=== PATIENT | female | born 1985 | race Caucasian/White ===

== ENCOUNTER 2022-07-02 18:27 | Emergency (ER) | payer MEDICAID ==
[~2022-07-02] VITALS: Ht 157.5 cm; Wt 82.0 kg
[2022-07-02 18:32] VITALS: BP 161/100
[2022-07-02 22:06] LABS: BASOPHILS % 1.2 % (0.0-2.0); EOSINOPHILS % 2.2 % (0.0-5.0); HEMATOCRIT. 33.8 % (36.0-48.0); HEMOGLOBIN. 11.2 g/dL (12.0-16.0); LYMPHOCYTES % 23.4 % (20.0-50.0); MEAN CORPUSCULAR HEMOGLOBIN 27.5 pg (28.0-32.0); MEAN CORPUSCULAR VOLUME 83.3 fL (81.0-99.0); MEAN PLATELET VOLUME 8.7 fl (7.4-10.4); MONOCYTES % 7.3 % (2.0-8.0); NEUTROPHILS % 65.9 % (40.0-76.0); PLATELET 359 x1000/uL (130-400); RED BLOOD CELL COUNT 4.05 mill/uL (4.2-5.4); RED CELL DISTRIBUTION WIDTH 14.3 % (11.6-14.6)
[2022-07-02 22:14] LABS: CHLORIDE 108 mEq/L (98-107)
[2022-07-02 22:16] LABS: HCG SCREEN NEGATIVE
[2022-07-02] MEDS ORDERED: SODIUM CHLORIDE 0.9% 1,000 ML IV ONE (22:30)
[2022-07-02] MEDS ORDERED: IOHEXOL-350 100 ML BOTTLE ONE (23:06)
== END 2022-07-03 00:40 | disposition home or self-care (01) ==
LOC: ER 18:27
DX: R07.89 Other chest pain (principal); Z98.890 Other specified postprocedural states; Z90.49 Acquired absence of other specified parts of digestive tract; Z88.1 Allergy status to other antibiotic agents; Z88.3 Allergy status to other anti-infective agents
CPT/HCPCS: 36415; 71045; 71275; 80053; 83880; 84484; 84703; 85025; 85379; 96360; 99285; J7030; Q9967; Z7610

== ENCOUNTER 2024-06-10 16:01 | Emergency (ER) | payer MEDICAID ==
[~2024-06-10] VITALS: Ht 160 cm; Wt 82.0 kg
[2024-06-10 16:04] VITALS: O2SAT 100
[2024-06-10 16:13] VITALS: PULSE 93; O2SAT 100
[2024-06-10] MEDS ORDERED: ACETAMINOPHEN 325MG TABLET PO ONE (17:45)
[2024-06-10 20:23] VITALS: BP 131/86; RESP 16
[2024-06-10] MEDS: LIDOCAINE 5% PATCH TOP SCH (20:23)
[2024-06-10 20:24] VITALS: TEMP 98
[2024-06-10] MEDS: ACETAMINOPHEN 325MG TABLET PO NR (20:24)
== END 2024-06-10 20:30 | disposition home or self-care (01) ==
LOC: ER 16:01
DX: S70.02XA Contusion of left hip, initial encounter (principal); S30.0XXA Contusion of lower back and pelvis, initial encounter; Z88.1 Allergy status to other antibiotic agents; Z88.6 Allergy status to analgesic agent; Z90.49 Acquired absence of other specified parts of digestive tract; Z98.890 Other specified postprocedural states; W10.9XXA Fall (on) (from) unspecified stairs and steps, initial encounter; Y93.89 Activity, other specified; Y92.89 Other specified places as the place of occurrence of the external cause; Y99.8 Other external cause status
CPT/HCPCS: 72100; 73502; 81025; 99284

== ENCOUNTER 2024-12-29 10:30 | Inpatient (IN) | payer MEDICAID ==
[~2024-12-29] VITALS: Ht 157.5 cm; Wt 81.6 kg
[2024-12-29 11:18] LABS: HEMATOCRIT. 35.8 % (36.0-48.0); HEMOGLOBIN. 11.8 g/dL (12.0-16.0); MEAN CORPUSCULAR HEMOGLOBIN 27.6 pg (28.0-32.0); MEAN CORPUSCULAR HGB CONC 32.9 g/dL (31.0-37.0); MEAN CORPUSCULAR VOLUME 83.9 fL (81.0-99.0); MEAN PLATELET VOLUME 8.5 fl (7.4-10.4); PLATELET 357 x1000/uL (130-400); RED BLOOD CELL COUNT 4.27 mill/uL (4.2-5.4); RED CELL DISTRIBUTION WIDTH 16.3 % (11.6-14.6); WHITE BLOOD COUNT 10.8 x1000/uL (4.5-11.0)
[2024-12-29 11:25] LABS: CHLORIDE 100 mEq/L (98-107); POTASSIUM 3.7 mEq/L (3.5-5.1); SODIUM 132 mEq/L (136-145)
[2024-12-29 11:26] LABS: CARBON DIOXIDE 17 mEq/L (21-32)
[2024-12-29 11:27] LABS: CALCIUM 9.4 mg/dL (8.7-10.4)
[2024-12-29 11:31] LABS: GLUCOSE 120 mg/dL (70-105)
[2024-12-29 11:32] LABS: UREA NITROGEN BLOOD 8 mg/dL (9-23)
[2024-12-29 11:33] LABS: ALANINE AMINOTRANSFERASE 26 IU/L (10-49); ALBUMIN 4.1 g/dL (3.2-4.8); ASPARTATE AMINOTRANSFERASE 27 IU/L (<34)
[2024-12-29 11:34] LABS: BILIRUBIN TOTAL 1.6 mg/dL (0.1-1.0); PROTEIN TOTAL 7.3 g/dL (6.0-8.3)
[2024-12-29 11:39] LABS: HCG SCREEN NEGATIVE
[2024-12-29 11:59] LABS: CLARITY URINE CLOUDY (CLEAR); COLOR URINE YELLOW (YELLOW); GLUCOSE URINE NEGATIVE (NEGATIVE); KETONES URINE NEGATIVE (NEGATIVE); LEUKOCYTE ESTERASE URINE 1+ (NEGATIVE); NITRITE URINE NEGATIVE (NEGATIVE); OCCULT BLOOD URINE 2+ (NEGATIVE); PROTEIN URINE 3+ (NEGATIVE); SPECIFIC GRAVITY URINE 1.009 (1.005-1.030); UROBILINOGEN URINE 0.2 E.U./dL (0.2-1.0)
[2024-12-29 12:07] LABS: DIFFERENTIAL COMMENT 1
[2024-12-29 13:22] LABS: SQUAMOUS EPITHELIAL CELL URINE 1+ /lpf (RARE/1+)
[2024-12-29 13:23] LABS: BACTERIA URINE 4+; RBC URINE 0-2 /hpf (0-2); WBC URINE 50-100 /hpf (0-2)
[2024-12-29 13:36] LABS: ANISOCYTOSIS 1+; PLATELET ESTIMATE NORMAL
[2024-12-29] MEDS: SODIUM CHLORIDE 0.9% 1,000 ML IV ONE (14:02)
[2024-12-29] MEDS: ONDANSETRON 4MG ODT PO ONE (14:03)
[2024-12-29] MEDS: MORPHINE SULFATE 4 MG/ML INJ (FOR IV/IM USE) IV ONE (14:04)
[2024-12-29] MEDS: SODIUM CHLORIDE 0.9% (SEPSIS BOLUS) IV ONE (14:04)
[2024-12-29] MEDS: ACETAMINOPHEN 325MG TABLET PO ONE (14:05)
[2024-12-29] MEDS: GENTAMICIN SULFATE IV NR (14:30)
[2024-12-29] MEDS: WATER IV NR (14:30)
[2024-12-29] MEDS: DEXT 5% IV NR (14:30)
[2024-12-29 14:43] LABS: LACTIC ACID 2.9 mmol/L (0.4-2.0)
[2024-12-29 18:54] VITALS: BP 132/72; PULSE 78; RESP 17; TEMP 37.3
[2024-12-29 20:00] VITALS: BP 153/92; PULSE 123; RESP 18; TEMP 36.5; O2SAT 100
[2024-12-29] MEDS ORDERED: CEFTRIAXONE 1GM/50ML 50 ML IV SCH (20:15)
[2024-12-29] MEDS: ONDANSETRON HCL 4MG/2ML INJ IV PRN (20:39)
[2024-12-29] MEDS: HYDROCODONE/ACETAMINOPHEN 10/325MG TABLET PO PRN (20:40)
[2024-12-29] MEDS ORDERED: LEVOFLOXACIN 500MG PREMIX 100 ML IV SCH (21:00)
[2024-12-29 21:28] LABS: BASOPHILS % 0.3 % (0.0-2.0); HEMOGLOBIN. 9.7 g/dL (12.0-16.0); LYMPHOCYTES % 7.4 % (20.0-50.0); MEAN CORPUSCULAR HEMOGLOBIN 27.9 pg (28.0-32.0); MEAN CORPUSCULAR HGB CONC 33.5 g/dL (31.0-37.0); MEAN CORPUSCULAR VOLUME 83.4 fL (81.0-99.0); MEAN PLATELET VOLUME 8.4 fl (7.4-10.4); MONOCYTES % 6.2 % (2.0-8.0); NEUTROPHILS % 86.1 % (40.0-76.0); PLATELET 261 x1000/uL (130-400); RED BLOOD CELL COUNT 3.47 mill/uL (4.2-5.4); WHITE BLOOD COUNT 8.6 x1000/uL (4.5-11.0)
[2024-12-29 21:32] LABS: CHLORIDE 105 mEq/L (98-107); POTASSIUM 3.5 mEq/L (3.5-5.1); SODIUM 135 mEq/L (136-145)
[2024-12-29 21:33] LABS: CALCIUM 8.4 mg/dL (8.7-10.4); CARBON DIOXIDE 18 mEq/L (21-32)
[2024-12-29 21:38] LABS: GLUCOSE 109 mg/dL (70-105); UREA NITROGEN BLOOD 8 mg/dL (9-23)
[2024-12-29] MEDS ORDERED: MEROPENEM 1G/100ML 100 ML IV SCH (22:00)
[2024-12-30] VITALS (7 sets, daily range): BP systolic 127–158; BP diastolic 77–103; PULSE 98–114; RESP 16–24; TEMP 36.2–39.2; O2SAT 98–100
[2024-12-30] MEDS: ACETAMINOPHEN 325MG TABLET PO PRN (02:17)
[2024-12-30] MEDS: AZTREONAM 2 GM in DEXT 5% WATER 100 ML IV SCH (02:18)
[2024-12-31] VITALS: BP 127/88; PULSE 96; RESP 18; TEMP 37; O2SAT 99
[2024-12-31 04:00] VITALS: BP 131/98; PULSE 99; RESP 16; TEMP 36.9; O2SAT 98
[2024-12-31 08:00] VITALS: BP 139/80; PULSE 81; RESP 20; TEMP 36.8; O2SAT 100
[2024-12-31 12:00] VITALS: BP 136/96; PULSE 78; RESP 18; TEMP 36.7; O2SAT 100
[2024-12-31 16:00] VITALS: BP 139/89; PULSE 68; RESP 18; TEMP 36.3; O2SAT 97
[2024-12-31] MEDS ORDERED: SULF1TAB48 MT (16:18)
[2024-12-31 16:44] VITALS: BP 139/89; PULSE 78; TEMP 98.1; O2SAT 100
== END 2024-12-31 18:01 | disposition home or self-care (01) | DRG 463 ==
LOC: ER 10:30 → 5WST 17:09
PROVIDERS: ADMIT Internal Medicine; ATTEND Internal Medicine
DX: N39.0 Urinary tract infection, site not specified (principal); B96.20 Unspecified Escherichia coli [E. coli] as the cause of diseases classified elsewhere; Z88.1 Allergy status to other antibiotic agents; Z88.6 Allergy status to analgesic agent; Z90.49 Acquired absence of other specified parts of digestive tract
CPT/HCPCS: 36415; 74176; 76700; 80048; 80053; 81003; 83605; 84145; 84703; 85025; 87077; 87186; 99285; A4606; J1580; J2270; J2405; J3490; J7030; J7060; Q0162